=== PATIENT | male | born 1975 | race Caucasian/White ===

== ENCOUNTER 2023-05-05 12:27 | Emergency (ER) | payer SELFPAY ==
[2023-05-05 12:32] VITALS: BP 152/84; PULSE 71; RESP 18; TEMP 36.7; O2SAT 98; BMI 38.0
--- NOTE | 2023-05-05 12:44 | CT_ITS ---
The [address] [address] Patient Name: EMMA FU MRN: [id number] date: 1975 Sex: M Assigned Patient Location: ER Current Patient Location: ER Accession/Order Number: [id number] Exam Date: 05/05/2023 13:20 Report Date: 05/05/2023 13:52 At the request of: RADHA BERMAN Procedure: CT abdomen pelvis wo con CT abdomen pelvis wo con CLINICAL HISTORY: Left flank and left lower quadrant pain. History of kidney stone COMPARISON: None Available. TECHNIQUE: No IV contrast axial CT scan from lung bases through symphysis pubis. Lack of IV contrast limits evaluation of solid organs. Oral contrast was not administered. Coronal and sagittal reconstructed images generated. Dose reduction techniques were achieved by using automated exposure control and/or adjustment of mA and/or kV according to patient size and/or use of iterative reconstruction technique. FINDINGS: CT ABDOMEN FINDINGS: Normal heart size. Lung bases clear. Liver and spleen normal in size. Normal sized adrenal glands. Gallbladder and pancreas unremarkable. Small nonobstructing left lower pole calculus. There is very mild left hydroureter and minimal surrounding edema present. Question minimal edema left kidney. Could represent recently passed stone versus a ascending urinary tract infection. No renal stone or hydronephrosis on the right. Normal caliber abdominal aorta. GI tract nondilated without obstruction. Appendix is negative. No significant inflammatory change or ascites. Moderate retained stool in the right colon. CT PELVIS FINDINGS: Normal-sized prostate. Urinary bladder unremarkable. Small fatty left inguinal hernia. Mild lumbar spondylosis. CT/CT abdomen pelvis wo con IMPRESSION: Minimal left hydroureter and suspect slight edema. Possible recently passed stone versus is in the urinary tract infection. No current ureteral stone. There is a nonobstructing left renal calculus. No other acute process seen. Electronically authenticated by: KARL GUNTER Date: 05/05/2023 13:52
[2023-05-05 13:00] LABS: Bilirubin Urine NEGATIVE (NEGATIVE); Blood Urine LARGE (NEGATIVE); Clarity Urine CLEAR (CLEAR); Color Urine YELLOW (YELLOW); Glucose Urine UA NEGATIVE (NEGATIVE); Ketones Urine NEGATIVE (NEGATIVE); Leukocyte Esterase Urine NEGATIVE (NEGATIVE); Nitrite Urine NEGATIVE (NEGATIVE); Protein Urine NEGATIVE (NEG/TRACE); Specific Gravity Urine 1.025 (1.005-1.025); Urine Microscopic Indicated YES; Urobilinogen Urine 0.2 EU/dL (0.2-1.0)
[2023-05-05 13:07] LABS: Bacteria Urine NONE SEEN #/HPF (NONE SEEN); Cast Seen? NONE SEEN #/LPF (NONE SEEN); Crystals Seen? None Seen #/HPF (None Seen); Mucus Urine NONE SEEN (NONE SEEN); RBC Urine 20-50 #/HPF (0-2); Squamous Epithelial Cell Urine RARE #/LPF (NONE/RARE); Urine Culture Indicated NO; WBC Urine NONE SEEN #/HPF (NONE SEEN)
[2023-05-05 13:30] LABS: Basophils Absolute Auto 0.1 10^3/uL (0.0-0.1); Basophils Percent Auto 0.9 % (0.2-2.0); Eosinophils Percent Auto 0.6 % (0.9-7.0); Hematocrit 42.4 % (42.0-54.0); Hemoglobin 14.1 g/dL (14.0-18.0); Immature Granulocytes Abs Auto 0.05 10^3/uL (0.00-0.03); Immature Granulocytes Pct Auto 0.8 % (0.0-0.5); Lymphocytes Absolute Auto 1.3 10^3/uL (1.2-3.8); Lymphocytes Percent Auto 18.9 % (20.5-60.0); Mean Corpuscular HGB Conc 33.3 g/dL (29.9-35.2); Mean Corpuscular Hemoglobin 28.5 pg (25.9-34.0); Mean Corpuscular Volume 85.7 fL (80.0-94.0); Mean Platelet Volume 10.2 fL (9.5-13.5); Monocytes Absolute Auto 0.4 10^3/uL (0.3-0.8); Monocytes Percent Auto 6.2 % (1.7-12.0); Neutrophils Absolute Auto 4.8 10^3/uL (1.4-6.5); Neutrophils Percent Auto 72.6 % (43.0-75.0); Platelet Count 255 10^3/uL (150-450); Red Blood Count 4.95 10^6/uL (4.70-6.10); Red Cell Distribution Width 13.5 % (11.0-15.0); White Blood Count 6.7 10^3/uL (4.0-11.0)
[2023-05-05 13:49] LABS: Alanine Aminotransferase 31 U/L (16-63); Albumin Globulin Ratio 0.9; Albumin Level 3.8 g/dL (3.4-5.0); Alkaline Phosphatase 84 U/L (46-116); Anion Gap 14.7; Aspartate Amino Transferase 18 U/L (15-37); BUN Creatinine Ratio 20.2; Bilirubin Total 0.4 mg/dL (0.2-1.0); Carbon Dioxide 24.4 mmol/L (21.0-32.0); Chloride 103 mmol/L (98-107); Estimated GFR (African America >60 (>=60); Estimated GFR (Non-African Ame >60 (>=60); Globulin 4.1 g/dL; Glucose 115 mg/dL (74-106); Potassium 4.1 mmol/L (3.5-5.1); Sodium 138 mmol/L (136-145); Total Protein 7.9 g/dL (6.4-8.2)
--- NOTE | 2023-05-05 14:06 | ED.ABDPAIN1 ---
HPI - Abdominal Pain General Chief Complaint: Abdominal Pain Stated Complaint: FLANK PAIN, HX KIDNEY STONES Time Seen by Provider: 05/05/23 12:44 Source: patient and family Mode of arrival: walk-in Limitations: no limitations History of Present Illness HPI narrative: The patient presented to us with a left-sided flank pain associated with the pain and nausea and this happened 2 hours before arrival, the patient has been continuous since then and he had no history of fever chills or any preceding symptoms The patient have history of kidney stone but he does not have any history of any procedure done before and he usually passed a kidney stone on himself No diarrhea Related Data Previous Rx's Medication Instructions Recorded nitrofurantoin 100 mg PO BID 7 days #14 caps 05/05/23 monohydrate/macrocrystals 100 mg capsule (Macrobid) Allergies Allergy/AdvReac Type Severity Reaction Status Date / Time No Known Drug Allergies Allergy Verified 05/05/23 12:35 Review of Systems ROS Status of ROS 10 or more systems reviewed and unremarkable except as noted in history and below PFSH PFSH Social History Smoking status: Current every day smoker Exam Narrative Exam Narrative: Nurses notes and vital signs reviewed and patient is not hypoxic. General: Well-appearing and in no apparent distress. Skin: Warm, dry, no pallor noted. No rash. Head: Normocephalic, atraumatic. Neck: Supple, non-tender. Eye: Pupils are equal, round and EOMI. No scleral icterus. Ears, Nose, Mouth, and Throat: TM are clear, no nasal mucosal hypertrophy. Oral mucosa is moist, no posterior oropharynx erythema, uvula is mid-line Cardiovascular: Regular Rate and Rhythm without murmur, gallop or rub. Respiratory: No accessory muscle use or respiratory distress. Lungs are clear to auscultation, no wheezing, rales or rhonchi Chest Wall: no tenderness Back: No midline thoracic or lumbar vertebral tenderness. No CVA tenderness Musculoskeletal: normal ROM, no calf or popliteal tenderness, no lower extremity edema/swelling GI: Abdomen is soft, non-distended. Normal bowel sounds. No masses appreciated. No tenderness to palpation. No rebound, guarding, or rigidity noted. Neurological: A&O x4. No cranial nerve dysfunction observed. No truncal ataxia. Moves all extremities. Sensation intact. Psychiatric: Cooperative and interactive. Normal mood and affect. Constitutional Vital Signs, click to edit/add: Last Vital Signs Temp 98.1 F 05/05/23 12:32 Pulse 71 05/05/23 12:32 Resp 18 05/05/23 12:32 BP 152/84 H 05/05/23 12:32 Pulse Ox 98 05/05/23 12:32 O2 Del Method Room Air 05/05/23 12:32 Course Vital Signs Vital signs: Vital Signs Temperature 98.1 F 05/05/23 12:32 Pulse Rate 71 05/05/23 12:32 Respiratory Rate 18 05/05/23 12:32 Blood Pressure 152/84 H 05/05/23 12:32 Pulse Oximetry 98 05/05/23 12:32 Oxygen Delivery Method Room Air 05/05/23 12:32 Temperature 98.1 F 05/05/23 12:32 Pulse Rate 71 05/05/23 12:32 Respiratory Rate 18 05/05/23 12:32 Blood Pressure 152/84 H 05/05/23 12:32 Pulse Oximetry 98 05/05/23 12:32 Oxygen Delivery Method Room Air 05/05/23 12:32 MDM - Abdominal Pain MDM Narrative Medical decision making narrative: While awaiting the patient to give us a urine sample and while he was in the bathroom before my evaluation the patient pain already resolved, he mentioned that he passed kidney stone multiple times The patient had no pain when I was evaluating him his CBC and chemistry were within normal urinalysis shows multiple RBCs The CAT scan shows possible hydronephrosis on the left side with suspected kidney stone that passed The patient will be covered prophylactically for UTI and he was referred to urology as outpatient He was instructed on hydration and coming back to the ER in case of pain or fever The patient is to follow up with primary care physician in next 2-3 days or to return to the emergency department should any of the signs or symptoms worsen or new symptoms develop. The patient agrees with the following Diagnosis and Treatment plan and the patient will be discharged home. Lab Data Labs: Lab Results 05/05/23 05/05/23 Range/Units 12:55 13:08 WBC 6.7 (4.0-11.0) 10^3/uL RBC 4.95 (4.70-6.10) 10^6/uL Hgb 14.1 (14.0-18.0) g/dL Hct 42.4 (42.0-54.0) % MCV 85.7 (80.0-94.0) fL MCH 28.5 (25.9-34.0) pg MCHC 33.3 (29.9-35.2) g/dL RDW 13.5 (11.0-15.0) % Plt Count 255 (150-450) 10^3/uL MPV 10.2 (9.5-13.5) fL Neut % (Auto) 72.6 (43.0-75.0) % Lymph % (Auto) 18.9 L (20.5-60.0) % Haines % (Auto) 6.2 (1.7-12.0) % Eos % (Auto) 0.6 L (0.9-7.0) % Baso % (Auto) 0.9 (0.2-2.0) % Neut # (Auto) 4.8 (1.4-6.5) 10^3/uL Lymph # (Auto) 1.3 (1.2-3.8) 10^3/uL Haines # (Auto) 0.4 (0.3-0.8) 10^3/uL Eos # (Auto) 0.0 (0.0-0.7) 10^3/uL Baso # (Auto) 0.1 (0.0-0.1) 10^3/uL Abs Immat Gran (auto) 0.05 H (0.00-0.03) 10^3/uL Imm/Tot Granulo (auto) 0.8 H (0.0-0.5) % Sodium 138 (136-145) mmol/L Potassium 4.1 (3.5-5.1) mmol/L Chloride 103 (98-107) mmol/L Carbon Dioxide 24.4 (21.0-32.0) mmol/L Anion Gap 14.7 BUN 18.0 (7.0-18.0) mg/dL Creatinine 0.89 (0.70-1.30) mg/dL Est GFR ( Amer) >60 (>=60) Est GFR (Non-Af Amer) >60 (>=60) BUN/Creatinine Ratio 20.2 Glucose 115 H (74-106) mg/dL Calcium 9.0 (8.5-10.1) mg/dL Total Bilirubin 0.4 (0.2-1.0) mg/dL AST 18 (15-37) U/L ALT 31 (16-63) U/L Alkaline Phosphatase 84 (46-116) U/L Total Protein 7.9 (6.4-8.2) g/dL Albumin 3.8 (3.4-5.0) g/dL Globulin 4.1 g/dL Albumin/Globulin Ratio 0.9 Urine Color Yellow (YELLOW) Urine Clarity Clear (CLEAR) Urine pH 6.0 (5.0-9.0) Ur Specific [place] 1.025 (1.005-1.025) Urine Protein Negative (NEG/TRACE) mg/dL Urine Glucose (UA) Negative (NEGATIVE) mg/dL Urine Ketones Negative (NEGATIVE) mg/dL Urine Occult Blood Large A (NEGATIVE) Urine Nitrite Negative (NEGATIVE) Urine Bilirubin Negative (NEGATIVE) Urine Urobilinogen 0.2 (0.2-1.0) EU/dL Ur Leukocyte Esterase Negative (NEGATIVE) Urine RBC 20-50 A (0-2) #/HPF Urine WBC None seen (NONE SEEN) #/HPF Ur Squamous Epith Cells Rare (NONE/RARE) #/LPF Urine Crystals None seen (None Seen) #/HPF Urine Bacteria None seen (NONE SEEN) #/HPF Urine Casts None seen (NONE SEEN) #/LPF Urine Mucus None seen (NONE SEEN) Ur Culture Indicated? No Discharge Plan Discharge Chief Complaint: Abdominal Pain Clinical Impression: Hydronephrosis, Kidney stone Time of Disposition Decision: 14:02 Condition: Good Mode of Transportation: Private Vehicle Prescriptions / Home Meds: New nitrofurantoin monohyd/m-cryst [Macrobid] 100 mg capsule 100 mg PO BID 7 Days Qty: 14 0RF Rx Instructions: must administer with a meal/food Instructions: Hydronephrosis (ED) Stand Alone Forms: Portal Instructions Referrals: Physician,Non-Staff, [Primary Care Provider] - 1 week Dennis Garay MD [Physician] - 1 week
== END 2023-05-05 14:11 | disposition home or self-care (01) ==
PROVIDERS: Emergency Provider Emergency Medicine
DX: N13.2 Hydronephrosis with renal and ureteral calculous obstruction (principal); F17.210 Nicotine dependence, cigarettes, uncomplicated; Z87.442 Personal history of urinary calculi
CPT/HCPCS: 36415; 74176; 80053; 81001; 85025; 99285